=== PATIENT | male | born 2000 | race Caucasian/White ===

== ENCOUNTER 2019-08-08 14:27 | Emergency (ER) | payer BC ==
[2019-08-08] MEDS ORDERED: Ketorolac 60 MG/2 ML SDV IM ONE (14:41)
--- NOTE | 2019-08-08 14:45 | EDM.PDOC ---
ED HPI GENERAL MEDICAL PROBLEM - General Chief Complaint: Lower Extremity Injury/Pain Stated Complaint: LT HIP PAIN Time Seen by Provider: 08/08/19 14:28 Source of Information: Reports: Patient History Limitations: Reports: No Limitations - History of Present Illness INITIAL COMMENTS - FREE TEXT/NARRATIVE: HISTORY AND PHYSICAL: History of present illness: Patient is a 19-year-old male who presents to the ED today with concern of left hip pain. Patient states he has had left hip pain since February but today he was hunting and after hunting he had a flareup in the left hip pain. Patient denies any trauma or injury to the hip that would've caused the pain or any new trauma or injury. Patient denies any other symptoms or concerns. Patient denies fever, chills, chest pain, shortness of breath, or cough. Denies headache, neck stiff ness, change in vision, syncope, or near syncope. Denies nausea, vomiting, abdominal pain, diarrhea, constipation, or dysuria. Has not noted any blood in urine or stool. Patient has been eating and drinking appropriately. Review of systems: As per history of present illness and below otherwise all systems reviewed and negative. Past medical history: As per history of present illness and as reviewed below otherwise noncontributory. Surgical history: As per history of present illness and as reviewed below otherwise noncontributory. Social history: See social history for further information Family history: As per history of present illness and as reviewed below otherwise noncontributory. Physical exam: General: Patient is alert, oriented, and in no acute distress. Patient standing in exam room, mildly uncomfortable. HEENT: Atraumatic, normocephalic, pupils equal and reactive bilaterally, negative for conjunctival pallor or scleral icterus, mucous membranes moist, TMs normal bilaterally, throat clear, neck supple, nontender, trachea midline. No drooling or trismus noted. No meningeal signs. No hot potato voice noted. Lungs: Clear to auscultation, breath sounds equal bilaterally, chest nontender. Heart: S1S2, regular rate and rhythm without overt murmur Abdomen: Soft, nondistended, nontender. Negative for masses or hepatosplenomegaly. Negative for costovertebral tenderness. Pelvis: Stable nontender. Genitourinary: Deferred. Rectal: Deferred. Skin: Intact, warm, dry. No lesions or rashes noted. Extremities: Atraumatic, negative for cords or calf pain. Neurovascular unremarkable. No obvious deformity of the complete left lower extremity/pelvis. Patient has full range of motion of the left knee, ankle, and digits but does have limited range of motion of the left hip due to pain. Dorsalis pedis and posterior tibial pulses are grossly intact of the left lower extremity with capillary refill less than 2 seconds. Neuro: Awake, alert, oriented. Cranial nerves II through XII unremarkable. Cerebellum unremarkable. Motor and sensory unremarkable throughout. Exam nonfocal. Notes: Discussed the importance for follow-up with an orthopedic provider. Voices understanding and is agreeable to plan of care. Denies any further questions or concerns at this time. Diagnostics: Pelvic w/ hip XR Therapeutics: Toradol, Norflex Prescription: Diclofenac, flexeril Impression: Left hip pain Plan: 1. Rest, ice, elevate the affected extremity. You can apply ice 15 minutes on, 15 minutes off. 2. Tylenol as directed for pain management or discomfort. Take medication as prescribed. 3. Follow up with the Orthopedic provider as discussed. Return to the ED as needed and as discussed. Definitive disposition and diagnosis as appropriate pending reevaluation and review of above. left hip Pain Score (Numeric/FACES): 5 - Related Data Allergies Allergy/AdvReac Type Severity Reaction Status Date / Time No Known Allergies Allergy Verified 08/08/19 14:35 Home Meds: Home Meds . [No Known Home Meds] 08/08/19 [History] Past Medical History - Past Health History Medical/Surgical History: Denies Medical/Surgical History - Past Surgical History HEENT Surgical History: Reports: Other (See Below) Other HEENT Surgeries/Procedures: cleft palette repair Musculoskeletal Surgical History: Reports: Other (See Below) Other Musculoskeletal Surgeries/Procedures:: bone graft Social & Family History - Family History Family Medical History: Noncontributory - Tobacco Use Smoking Status *Q: Current Every Day Smoker Years of Tobacco use: 4 Packs/Tins Daily: 0.5 - Recreational Drug Use Recreational Drug Use: No Review of Systems - Review of Systems Review Of Systems: ROS reveals no pertinent complaints other than HPI. ED EXAM, GENERAL - Physical Exam Exam: See Below (See dictation) Course - Vital Signs Last Recorded V/S: Last Vital Signs Temp 96.4 F 08/08/19 14:32 Pulse 98 08/08/19 14:32 Resp 18 08/08/19 14:32 BP 137/95 H 08/08/19 14:32 Pulse Ox 100 08/08/19 14:32 - Orders/Labs/Meds Meds: Medications Discontinued Medications Generic Name Dose Route Start Last Admin Trade Name David PRN Reason Stop Dose Admin Ketorolac Tromethamine 60 mg 08/08/19 14:41 08/08/19 14:59 Toradol IM 08/08/19 14:42 60 mg ONETIME ONE Administration Orphenadrine Citrate 60 mg 08/08/19 14:41 08/08/19 14:58 Norflex IM 08/08/19 14:42 60 mg NOW STA Administration Departure - Departure Time of Disposition: 15:45 Disposition: Home, Self-Care 01 Clinical Impression: Hip pain Qualifiers: Laterality: left Qualified Code(s): M25.552 - Pain in left hip - Discharge Information Referrals: PCP,None [Primary Care Provider] - Forms: ED Department Discharge Additional Instructions: The following information is given to patients seen in the emergency department who are being discharged to home. This information is to outline your options for follow-up care. We provide all patients seen in our emergency department with a follow-up referral. The need for follow-up, as well as the timing and circumstances, are variable depending upon the specifics of your emergency department visit. If you don't have a primary care physician on staff, we will provide you with a referral. We always advise you to contact your personal physician following an emergency department visit to inform them of the circumstance of the visit and for follow-up with them and/or the need for any referrals to a consulting specialist. The emergency department will also refer you to a specialist when appropriate. This referral assures that you have the opportunity for follow-up care with a specialist. All of these measure are taken in an effort to provide you with optimal care, which includes your follow-up. Under all circumstances we always encourage you to contact your private physician who remains a resource for coordinating your care. When calling for follow-up care, please make the office aware that this follow-up is from your recent emergency room visit. If for any reason you are refused follow-up, please contact the [facility] Emergency Department at and asked to speak to the emergency department charge nurse. ADONAY [facility] [address] [place] [address] [address] [facility] - [facility] Professional Building [address], [address] [place] [address] Dr Nova, Orthopedist [facility] [address] [place] [address] Dr Narayanan - Dr Mathew - Dr Iglesias [facility] at [facility] [address] [place] [address] [facility] [address] [place] [address] 1. Rest, ice, elevate the affected extremity. You can apply ice 15 minutes on, 15 minutes off. 2. Tylenol as directed for pain management or discomfort. Take medication as prescribed. 3. Follow up with the Orthopedic provider as discussed. Return to the ED as needed and as discussed.
--- NOTE | 2019-08-08 15:41 | CR ---
HISTORY: Left hip pain. TECHNIQUE: Frontal view the pelvis and 2 views of the left hip. COMPARISON: None. FINDINGS: No fracture. Left hip joint space is maintained. Right hip joint space is maintained. Pubic symphysis and sacroiliac joints are maintained. IMPRESSION: No bone abnormality. Dictated by Laron Juarez MD @ Aug 08 2019 3:37PM Signed by Dr. Laron Juarez @ Aug 08 2019 3:40PM
== END 2019-08-08 16:00 | disposition home or self-care (01) ==
LOC: MW.ED 14:27
DX: M25.552 Pain in left hip (principal); F17.210 Nicotine dependence, cigarettes, uncomplicated
CPT/HCPCS: 73502; 96372; 99283; J1885; J2360

== ENCOUNTER 2020-05-01 01:04 | Emergency (ER) | payer SELFPAY ==
[2020-05-01] MEDS ORDERED: Cephalexin 500 MG Cap PO ONE (01:21)
--- NOTE | 2020-05-01 01:25 | EDM.PDOC ---
ED HPI GENERAL MEDICAL PROBLEM - General Chief Complaint: Lower Extremity Injury/Pain Stated Complaint: RIGHT FOOT SWELLING Time Seen by Provider: 05/01/20 01:20 Source of Information: Reports: Patient History Limitations: Reports: No Limitations - History of Present Illness INITIAL COMMENTS - FREE TEXT/NARRATIVE: History of present illness: [] She was barefoot and water both fishing today and his right foot began to hurt. It is swelled up since. It swelled up to the junction of the middle and lower third of the right leg. The foot itself is quite swollen and tender. Th ere is warmth in the foot as well. Review of systems: As per history of present illness and below otherwise all systems reviewed and negative. Past medical history: As per history of present illness and as reviewed below otherwise noncontributory. Surgical history: As per history of present illness and as reviewed below otherwise noncontributory. Social history: No reported history of drug or alcohol abuse. Family history: As per history of present illness and as reviewed below otherwise noncontributory. Physical exam: Constitutional - well developed, well-nourished and in no acute distress HEENT - normocephalic, no evidence of trauma - external nose and mouth normal - no mass in neck and no JVD - mucosae moist EYES - full EOM, PERRL, no icterus - no evidence of inflammation, injection, or drainage Respiratory - no respiratory distress, equal bilateral expansion Musculoskeletal swelling and tenderness of the midfoot to the toes of the right lower extremity. 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 right foot Pain Score (Numeric/FACES): 5 - Related Data Allergies Allergy/AdvReac Type Severity Reaction Status Date / Time No Known Allergies Allergy Verified 05/01/20 01:19 Home Meds: Home Meds Cyclobenzaprine [Flexeril] 10 mg PO TID PRN #9 tab 08/08/19 [Rx] Diclofenac Sodium [Voltaren] 75 mg PO BIDMEALS PRN #15 tab.cr 08/08/19 [Rx] cephALEXin [Keflex] 500 mg PO BID #20 capsule 05/01/20 [Rx] Past Medical History - Past Health History Medical/Surgical History: Denies Medical/Surgical History - Past Surgical History HEENT Surgical History: Reports: Other (See Below) Other HEENT Surgeries/Procedures: cleft palette repair Musculoskeletal Surgical History: Reports: Other (See Below) Other Musculoskeletal Surgeries/Procedures:: bone graft Social & Family History - Family History Family Medical History: Noncontributory Review of Systems - Review of Systems Review Of Systems: Comprehensive ROS is negative, except as noted in HPI. (Review of systems negative except as per HPI) ED EXAM, GENERAL - Physical Exam Exam: See Below Free Text/Narrative:: Exam is in my HPI Course - Vital Signs Last Recorded V/S: Last Vital Signs Temp 97.2 F 05/01/20 02:00 Pulse 86 05/01/20 02:00 Resp 18 05/01/20 02:00 BP 130/80 05/01/20 02:00 Pulse Ox 98 05/01/20 02:00 - Orders/Labs/Meds Orders: Active Orders 24 hr Category Date Time Status Vaccines to be Administered [RC] PER UNIT ROUTINE Care 05/01/20 01:47 Active Labs: Laboratory Tests 05/01/20 Range/Units 01:35 WBC 15.60 H (4.0-11.0) K/uL RBC 5.20 (4.50-5.90) M/uL Hgb 15.7 (13.0-17.0) g/dL Hct 44.9 (38.0-50.0) % MCV 86.3 (80.0-98.0) fL MCH 30.2 (27.0-32.0) pg MCHC 35.0 (31.0-37.0) g/dL RDW Std Deviation 40.0 (28.0-62.0) fl RDW Coeff of Karley 13 (11.0-15.0) % Plt Count 241 (150-400) K/uL MPV 10.50 (7.40-12.00) fL Neut % (Auto) 72.9 (48.0-80.0) % Lymph % (Auto) 16.3 (16.0-40.0) % Weld % (Auto) 10.3 (0.0-15.0) % Eos % (Auto) 0.4 (0.0-7.0) % Baso % (Auto) 0.1 (0.0-1.5) % Neut # (Auto) 11.4 H (1.4-5.7) K/uL Lymph # (Auto) 2.6 H (0.6-2.4) K/uL Weld # (Auto) 1.6 H (0.0-0.8) K/uL Eos # (Auto) 0.1 (0.0-0.7) K/uL Baso # (Auto) 0.0 (0.0-0.1) K/uL Nucleated RBC % 0.0 /100WBC Nucleated RBCs # 0 K/uL Meds: Medications Discontinued Medications Generic Name Dose Route Start Last Admin Trade Name Freq PRN Reason Stop Dose Admin Cephalexin 500 mg 05/01/20 01:21 05/01/20 01:56 Keflex PO 05/01/20 01:22 500 mg ONETIME ONE Administration Diphtheria/Tetanus/Acell Pertussis 0.5 ml 05/01/20 01:47 05/01/20 01:57 Adacel IM 05/01/20 01:48 Not Given .ONCE ONE Departure - Departure Time of Disposition: 01:49 Disposition: Home, Self-Care 01 Condition: Good Clinical Impression: Cellulitis, Swelling - Discharge Information *PRESCRIPTION DRUG MONITORING PROGRAM REVIEWED*: Not Applicable *COPY OF PRESCRIPTION DRUG MONITORING REPORT IN PATIENT RAFAEL: No Prescriptions: cephALEXin [Keflex] 500 mg PO BID #20 capsule Instructions: Cellulitis, Adult Referrals: PCP,None [Primary Care Provider] - Forms: ED Department Discharge Additional Instructions: The following information is given to patients seen in the emergency department who are being discharged to home. This information is to outline your options for follow-up care. We provide all patients seen in our emergency department with a follow-up referral. The need for follow-up, as well as the timing and circumstances, are variable depending upon the specifics of your emergency department visit. If you don't have a primary care physician on staff, we will provide you with a referral. We always advise you to contact your personal physician following an emergency department visit to inform them of the circumstance of the visit and for follow-up with them and/or the need for any referrals to a consulting specialist. The emergency department will also refer you to a specialist when appropriate. This referral assures that you have the opportunity for follow-up care with a specialist. All of these measure are taken in an effort to provide you with optimal care, which includes your follow-up. Under all circumstances we always encourage you to contact your private physician who remains a resource for coordinating your care. When calling for follow-up care, please make the office aware that this follow-up is from your recent emergency room visit. If for any reason you are refused follow-up, please contact the [facility] Emergency Department at and asked to speak to the emergency department charge nurse. [facility] [address] [place] [address] [place] [address] Sepsis Event Note (ED) - Evaluation Sepsis Screening Result: No Definite Risk - Focused Exam Vital Signs: Vital Signs Temp Pulse Resp BP Pulse Ox 05/01/20 02:00 97.2 F 86 18 130/80 98 05/01/20 01:19 97.3 F 90 18 132/91 H 98 - My Orders Last 24 Hours: My Active Orders 05/01/20 01:47 Vaccines to be Administered [RC] PER UNIT ROUTINE - Assessment/Plan Last 24 Hours: My Active Orders 05/01/20 01:47 Vaccines to be Administered [RC] PER UNIT ROUTINE
--- NOTE | 2020-05-01 01:39 | CR ---
Indication: Right foot pain and swelling Technique: Two views Comparison: None Findings: Bones: No acute fracture. Slight scalloping of the lateral 3rd metatarsal neck on the AP view. This is likely more chronic. Joint spaces: Unremarkable. Soft tissues: Forefoot soft tissue swelling Dictated by Edilson Beaver MD @ May 01 2020 1:35AM Signed by Dr. Edilson Beaver @ May 01 2020 1:39AM
[2020-05-01] MEDS ORDERED: Diphtheria,Pertussis(Acell),Tetanus Vaccine 0.5 ML Syringe IM ONE (01:47)
== END 2020-05-01 02:05 | disposition home or self-care (01) ==
LOC: MW.ED 01:04
DX: L03.115 Cellulitis of right lower limb (principal); M79.89 Other specified soft tissue disorders
CPT/HCPCS: 36415; 73620; 85025; 99283; A9270; 99282

== ENCOUNTER 2021-10-14 16:17 | Emergency (ER) | payer SELFPAY ==
--- NOTE | 2021-10-14 17:28 | EDM.PDOC ---
ED HPI GENERAL MEDICAL PROBLEM - General Chief Complaint: Skin Complaint Stated Complaint: RASH ON NECK Time Seen by Provider: 10/14/21 16:19 - History of Present Illness INITIAL COMMENTS - FREE TEXT/NARRATIVE: CHIEF COMPLAINT(S): Rash HISTORY OF PRESENT ILLNESS: This is a 21-year-old man without any significant past medical history who comes to the emergency department with a chief complaint of rash. The patient states that for approximately 6 or 7 days he has been experiencing a rash which is located on his armpits his arms his chest which is going up to his neck and in his groin. He describes the rash as itchy and burning. He states that there is nothing that seems to be stopping the issue. He denies any fevers, chills. He states that he has never had a rash before. He states that hot water seems to help it. There are no other relieving factors. He has not tried any other medications. REVIEW OF SYSTEMS: Constitutional: Denies fever, chills. Eyes: Denies eye pain Ears, Nose, Mouth, & Throat: Denies earache Cardiovascular: Denies chest pain Respiratory: Denies shortness of breath Gastrointestinal: Denies Nausea, vomiting, diarrhea, hematochezia. Genitourinary: Denies hematuria Skin: Positive for itching and burning rash MSK: Denies joint pain Neurological: Denies blurred vision Psychiatric: Denies depression PAST MEDICAL HISTORY: As per history of present illness and as reviewed below otherwise noncontributory. SURGICAL HISTORY: As per history of present illness and as reviewed below otherwise noncontributory. SOCIAL HISTORY: As per history of present illness and as reviewed below ot herwise noncontributory. FAMILY HISTORY: As per history of present illness and as reviewed below otherwise noncontributory. EXAMINATION OF ORGAN SYSTEMS/BODY AREAS: Constitutional: Blood pressure is 138/71, heart rate 16, respiratory rate 82 with an oxygen saturation of 96% on room air General: Well-appearing man who is in no acute distress Psychiatric: Appropriate mood and affect. Eyes: No scleral icterus or conjunctival erythema ENMT: Moist mucous membranes. No pharyngeal erythema no oral lesions. Cardiovascular: Regular, rate, and rhythm. No gallops, murmurs, or rubs. Bilateral upper extremity pulses symmetric and intact. No peripheral edema. No JVD. Respiratory: Lungs clear to auscultation bilaterally. No wheezes, rales, or rhonchi. Gastrointestinal: Soft, non-tender, non-distended. Normoactive bowel sounds Genitourinary: No suprapubic tenderness Musculoskeletal: Normal range of motion. Skin: There is a rash located in the typical areas of scabies located on the anterior chest wall, axilla, flexural surfaces of the elbow, wrists and the groin with erythematous papules and papulovesicles which is in between the webspaces of the hands. Neurological: Alert, GCS 15 MEDICAL DECISION MAKING AND COURSE IN THE ED WITH INTERPRETATION/REVIEW OF DIAGNOSTIC STUDIES: This is a 21-year-old man without any significant past medical history who comes to the emergency department with rash consistent with scabies. At this time I did discuss with him that we would provide him with permethrin here in the emergency department today, and apply. I encouraged him to use permethrin cream 2 weeks from now and discussed that everyone in his house will need to be treated. I did discuss symptomatic treatment with Benadryl at home. He was amenable to this plan and had no further questions. He was given strict return precautions. He is to follow-up with dermatology DISPOSITION: The patient was discharged home in stable condition. The patient will follow up with dermatology CONDITION: Fair PROCEDURES: None FINAL IMPRESSION(S)/DIAGNOSES: Acute rash secondary to scabies Chuck Pfeiffer M.D. generalized-skin rash Pain Score (Numeric/FACES): 2 - Related Data Allergies Allergy/AdvReac Type Severity Reaction Status Date / Time No Known Allergies Allergy Verified 10/14/21 16:47 Home Meds: Home Meds Permethrin 60 gm TP ONETIME #60 cream..g. 10/14/21 [Rx] Past Medical History - Past Health History Medical/Surgical History: Denies Medical/Surgical History Cardiovascular History: Reports: None Respiratory History: Reports: None Gastrointestinal History: Reports: None Genitourinary History: Reports: None Musculoskeletal History: Reports: None Neurological History: Reports: None Psychiatric History: Reports: None Endocrine/Metabolic History: Reports: None Insulin Pump Model and Senior Compliance Officer: None Hematologic History: Reports: None Immunologic History: Reports: None Oncologic (Cancer) History: Reports: None Dermatologic History: Reports: None - Infectious Disease History Infectious Disease History: Reports: None - Past Surgical History Head Surgeries/Procedures: Reports: None HEENT Surgical History: Reports: Other (See Below) Other HEENT Surgeries/Procedures: cleft palette repair Musculoskeletal Surgical History: Reports: Other (See Below) Other Musculoskeletal Surgeries/Procedures:: bone graft Social & Family History - Family History Family Medical History: No Pertinent Family History - Tobacco Use Tobacco Use Status *Q: Current Every Day Tobacco User Years of Tobacco use: 3 Packs/Tins Daily: 1 - Caffeine Use Caffeine Use: Reports: Energy Drinks - Recreational Drug Use Recreational Drug Use: Yes Recreational Drug Type: Reports: Marijuana/Hashish Recreational Drug Use Frequency: Rarely ED ROS GENERAL - Review of Systems Review Of Systems: See Below ED EXAM, SKIN/RASH Exam: See Below Course - Vital Signs Last Recorded V/S: Last Vital Signs Temp Pulse 88 10/14/21 18:46 Resp 16 10/14/21 18:46 BP 125/82 10/14/21 18:46 Pulse Ox 99 10/14/21 18:46 - Orders/Labs/Meds Meds: Medications Discontinued Medications Generic Name Dose Route Start Last Admin Trade Name David PRN Reason Stop Dose Admin Permethrin 0 gm 10/14/21 17:19 Permethrin 60 Gm Tube TOP 10/14/21 17:20 ONETIME ONE Departure - Departure Time of Disposition: 17:28 Disposition: Home, Self-Care 01 Condition: Fair Clinical Impression: Scabies - Discharge Information *PRESCRIPTION DRUG MONITORING PROGRAM REVIEWED*: No *COPY OF PRESCRIPTION DRUG MONITORING REPORT IN PATIENT RAFAEL: No Prescriptions: Permethrin 60 gm TP ONETIME #60 cream..g. Instructions: Scabies, Adult Referrals: PCP,None [Primary Care Provider] - Forms: ED Department Discharge Additional Instructions: You were evaluated today on an emergent basis. At this time you do have scabies. I recommend that you use permethrin cream and apply it as discussed today and massaged into your skin. We then would like you to repeat the same treatment in 2 weeks and I did send permethrin cream to the pharmacy. For the itching I recommend you take a daily tablet of Zyrtec in the morning and a 50 mg tablet of Benadryl in the evening. These can be purchased [id number]. In addition we recommend that everybody in the household get treated and that you clean all the clothes and sheets in warm to hot water and then dry it at a high temperature. If you are unable to clean all the close and sheets we recommend that you place them into a plastic bag and leave them in there for 3 to 4 days. You have any worsening symptoms or you have any questions or concerns you are welcome to return to the emergency department. Otherwise we would like you to follow-up with dermatology after your 2-week treatment. [facility] [address], [address] [place] [address] [phone] The patient is informed of any results of their evaluation and diagnostic workup and all questions are answered. They are given discharge instructions and return precautions. The patient is stable for discharge. The patient states they understand and agree with the plan and that they will return if their symptoms get worse or if they have any new concerns. The following information is given to patients seen in the emergency department who are being discharged to home. This information is to outline your options for follow-up care. We provide all patients seen in our emergency department with a follow-up referral. The need for follow-up, as well as the timing and circumstances, are variable depending upon the specifics of your emergency department visit. If you don't have a primary care physician on staff, we will provide you with a referral. We always advise you to contact your personal physician following an emergency department visit to inform them of the circumstance of the visit and for follow-up with them and/or the need for any referrals to a consulting specialist. The emergency department will also refer you to a specialist when appropriate. This referral assures that you have the opportunity for follow-up care with a specialist. All of these measure are taken in an effort to provide you with optimal care, which includes your follow-up. Under all circumstances we always encourage you to contact your private physician who remains a resource for coordinating your care. When calling for follow-up care, please make the office aware that this follow-up is from your recent emergency room visit. If for any reason you are refused follow-up, please contact the [facility] Emergency Department at and asked to speak to the emergency department charge nurse. Sepsis Event Note (ED) - Evaluation Sepsis Screening Result: No Definite Risk
== END 2021-10-14 18:46 | disposition home or self-care (01) ==
LOC: MW.ED 16:17
DX: B86 Scabies (principal); Z72.0 Tobacco use
CPT/HCPCS: 99282; A9270

== ENCOUNTER 2022-01-30 22:25 | Emergency (ER) | payer SELFPAY ==
[2022-01-30] MEDS ORDERED: Ondansetron 4 MG/2 ML SDV IVPUSH ONE (22:28)
[2022-01-30] MEDS ORDERED: HYDROmorphone 1 MG/ML Syringe IVPUSH ONE (22:28)
== END 2022-01-30 23:40 | disposition home or self-care (01) ==
LOC: MW.ED 22:25
DX: M54.2 Cervicalgia (principal); M25.512 Pain in left shoulder; M54.6 Pain in thoracic spine
CPT/HCPCS: 70450; 71045; 72125; 73030; 96374; 96375; 99284; J1170; J2405

== ENCOUNTER 2022-02-11 20:53 | Emergency (ER) | payer OTHER ==
[2022-02-11] MEDS ORDERED: Acetaminophen/oxyCODONE 325-5 MG Tab PO ONE (20:58)
[2022-02-11] MEDS ORDERED: Ibuprofen 600 MG Tab PO ONE (20:58)
[2022-02-11] MEDS ORDERED: Lidocaine 1% with EPINEPHrine 1:100,000 10 ML MDV INJECT ONE (21:24)
[2022-02-11] MEDS ORDERED: Bacitracin Oint 1 GM U/D Packet TOP ONE (21:50)
[2022-02-11] MEDS ORDERED: Bacitracin Oint 1 GM U/D Packet ONE (21:51)
== END 2022-02-11 21:59 | disposition home or self-care (01) ==
LOC: MW.ED 20:53
DX: S81.811A Laceration without foreign body, right lower leg, initial encounter (principal); V86.56XA Driver of dirt bike or motor/cross bike injured in nontraffic accident, initial encounter; Y92.410 Unspecified street and highway as the place of occurrence of the external cause
CPT/HCPCS: 12002; 73560; 99282; A9270